=== PATIENT | male | born 1960 | race African-American/Black ===

== ENCOUNTER 2021-03-04 17:25 | Inpatient (IN) | payer OTHER, MEDICAID ==
[~2021-03-04] VITALS: Ht 185.4 cm; Wt 152.4 kg
[2021-03-04] MEDS ORDERED: ATOR10TA69 PO (17:30)
[2021-03-04] MEDS ORDERED: AMLO-79 MT (17:30)
[2021-03-04] MEDS ORDERED: WARF1POW MC (17:30)
[2021-03-04] MEDS ORDERED: CARV6.2548 PO (17:30)
[2021-03-04] MEDS ORDERED: GABA-533 PO (17:30)
[2021-03-04] MEDS ORDERED: ISOS10TA53 PO (17:30)
[2021-03-04 18:18] LABS: BASOPHILS % 0.8 % (0.0-2.0); HEMATOCRIT. 43.1 % (42.0-52.0); HEMOGLOBIN. 14.2 g/dL (14.0-18.0); LYMPHOCYTES % 31.5 % (20.0-50.0); MEAN CORPUSCULAR HEMOGLOBIN 28.4 pg (28.0-32.0); MEAN CORPUSCULAR VOLUME 86.2 fL (80.0-94.0); MEAN PLATELET VOLUME 8.2 fl (7.4-10.4); MONOCYTES % 7.6 % (2.0-8.0); NEUTROPHILS % 57.1 % (40.0-76.0); PLATELET 175 x1000/uL (130-400); RED CELL DISTRIBUTION WIDTH 14.2 % (11.6-14.6)
[2021-03-04 18:26] LABS: ETHANOL BLOOD < 10 mg/dL
[2021-03-04 18:33] LABS: INR 1.4; PROTHROMBIN TIME 14.5 sec (9.6-11.0)
[2021-03-04 18:51] LABS: CHLORIDE 106 mEq/L (98-107)
[2021-03-04 21:51] LABS: CLARITY URINE CLEAR (CLEAR); COLOR URINE YELLOW (YELLOW); KETONES URINE NEGATIVE (NEGATIVE); LEUKOCYTE ESTERASE URINE NEGATIVE (NEGATIVE); NITRITE URINE NEGATIVE (NEGATIVE); OCCULT BLOOD URINE NEGATIVE (NEGATIVE); PROTEIN URINE TRACE (NEGATIVE); SPECIFIC GRAVITY URINE 1.032 (1.005-1.030); UROBILINOGEN URINE 0.2 E.U./dL (0.2-1.0)
[2021-03-04 22:19] LABS: *COCAINE SCREEN URINE NEGATIVE (NEGATIVE)
[2021-03-04 22:20] LABS: *AMPHETAMINES SCREEN URINE NEGATIVE (NEGATIVE); *BARBITURATES SCREEN URINE NEGATIVE (NEGATIVE); *BENZODIAZEPINES SCREEN URINE NEGATIVE (NEGATIVE); CANNABINOID URINE SCREEN NEGATIVE (NEGATIVE); METHADONE URINE SCREEN NEGATIVE (NEGATIVE); OPIATES URINE SCREEN NEGATIVE (NEGATIVE); PHENCYCLIDINE URINE SCREEN NEGATIVE (NEGATIVE)
[2021-03-04 23:40] VITALS: BP 118/100
[2021-03-04 23:45] VITALS: BP 118/100
[2021-03-05] MEDS ORDERED: ACETAMINOPHEN 325MG TABLET PO PRN
[2021-03-05] MEDS ORDERED: DEXTROSE 50% WATER 50ML SYRINGE IV PRN (01:00)
[2021-03-05] MEDS: WARFARIN SODIUM 5MG TABLET PO SCH ×2 (01:34→17:47)
[2021-03-05] MEDS: WARFARIN SODIUM 4MG TABLET PO SCH ×2 (01:35→17:47)
[2021-03-05] MEDS ORDERED: ISOS30TA91 MT (02:47)
[2021-03-05] MEDS ORDERED: WARF-53 MT (02:51)
[2021-03-05] MEDS ORDERED: WARF4TAB71 MT (02:51)
[2021-03-05] MEDS ORDERED: METF-414 MT (02:53)
[2021-03-05 04:00] VITALS: BP 117/80
[2021-03-05 06:15] LABS: EOSINOPHILS % 3.4 % (0.0-5.0); HEMOGLOBIN. 13.6 g/dL (14.0-18.0); LYMPHOCYTES % 32.3 % (20.0-50.0); MEAN CORPUSCULAR HEMOGLOBIN 27.2 pg (28.0-32.0); MEAN CORPUSCULAR VOLUME 83.7 fL (80.0-94.0); MEAN PLATELET VOLUME 8.3 fl (7.4-10.4); MONOCYTES % 7.7 % (2.0-8.0); NEUTROPHILS % 55.6 % (40.0-76.0); PLATELET 199 x1000/uL (130-400); RED BLOOD CELL COUNT 5.01 mill/uL (4.7-6.1)
[2021-03-05] MEDS: BLOOD SUGAR DIAGNOSTIC STRIP TEST SCH ×4 (06:18→21:00)
[2021-03-05 06:24] LABS: CHLORIDE 107 mEq/L (98-107)
[2021-03-05 06:31] LABS: LDL CHOLESTEROL 109 mg/dL (5-100)
[2021-03-05] MEDS: INSULIN LISPRO 100 UNITS/ML SUBCUT SCH ×4 (06:32→22:06)
[2021-03-05 06:33] LABS: HDL CHOLESTEROL 47 mg/dL (40-59)
[2021-03-05 08:00] VITALS: BP 158/110
[2021-03-05] MEDS: CARVEDILOL 12.5MG TABLET PO SCH ×2 (08:38→22:07)
[2021-03-05 12:00] VITALS: BP 123/63
[2021-03-05 16:00] VITALS: BP 140/106
[2021-03-05] MEDS: ENOXAPARIN 150MG/ML SYR SUBCUT SCH (17:47)
[2021-03-05 20:27] VITALS: BP 174/113
[2021-03-05] MEDS ORDERED: ATORVASTATIN CALCIUM 40MG TABLET PO SCH (21:00)
[2021-03-06 00:34] VITALS: BP 155/82
[2021-03-06 04:00] VITALS: BP 167/102
[2021-03-06] MEDS: ENOXAPARIN 150MG/ML SYR SUBCUT SCH ×2 (05:26→17:26)
[2021-03-06 05:54] LABS: INR 1.4; PROTHROMBIN TIME 14.4 sec (9.6-11.0)
[2021-03-06] MEDS: BLOOD SUGAR DIAGNOSTIC STRIP TEST SCH ×4 (06:23→21:01)
[2021-03-06] MEDS: INSULIN LISPRO 100 UNITS/ML SUBCUT SCH ×4 (07:15→21:00)
[2021-03-06 08:00] VITALS: BP 139/94
[2021-03-06] MEDS: CARVEDILOL 12.5MG TABLET PO SCH ×2 (10:18→20:56)
[2021-03-06 12:00] VITALS: BP 149/93
[2021-03-06] MEDS: ISOSORBIDE MONONITRATE 30MG TABLET SR 24HR PO SCH (12:44)
[2021-03-06] MEDS: ASPIRIN 81MG TABLET PO SCH (12:44)
[2021-03-06 16:00] VITALS: BP 141/103
[2021-03-06] MEDS: WARFARIN SODIUM 5MG TABLET PO SCH (18:00)
[2021-03-06] MEDS: WARFARIN SODIUM 4MG TABLET PO SCH (18:00)
[2021-03-06 20:00] VITALS: BP 132/87
[2021-03-06] MEDS: ATORVASTATIN CALCIUM 40MG TABLET PO SCH (20:56)
[2021-03-06] MEDS: INSULIN GLARGINE UD 100 UNITS/ML SYR SUBCUT SCH (21:02)
[2021-03-07] VITALS: BP 144/90
[2021-03-07 04:00] VITALS: BP 146/89
[2021-03-07] MEDS: ENOXAPARIN 150MG/ML SYR SUBCUT SCH ×2 (06:23→18:06)
[2021-03-07] MEDS: BLOOD SUGAR DIAGNOSTIC STRIP TEST SCH ×4 (06:23→20:23)
[2021-03-07] MEDS: INSULIN LISPRO 100 UNITS/ML SUBCUT SCH ×4 (06:25→20:22)
[2021-03-07 08:00] VITALS: BP 123/87
[2021-03-07 08:47] LABS: BASOPHILS % 0.9 % (0.0-2.0); EOSINOPHILS % 3.6 % (0.0-5.0); HEMATOCRIT. 38.6 % (42.0-52.0); HEMOGLOBIN. 12.8 g/dL (14.0-18.0); LYMPHOCYTES % 30.5 % (20.0-50.0); MEAN CORPUSCULAR HEMOGLOBIN 27.6 pg (28.0-32.0); MEAN CORPUSCULAR VOLUME 82.9 fL (80.0-94.0); MEAN PLATELET VOLUME 8.4 fl (7.4-10.4); MONOCYTES % 7.6 % (2.0-8.0); NEUTROPHILS % 57.4 % (40.0-76.0); PLATELET 213 x1000/uL (130-400); RED BLOOD CELL COUNT 4.66 mill/uL (4.7-6.1); RED CELL DISTRIBUTION WIDTH 13.9 % (11.6-14.6)
[2021-03-07 08:54] LABS: CHLORIDE 107 mEq/L (98-107)
[2021-03-07] MEDS: ASPIRIN 81MG TABLET PO SCH (08:55)
[2021-03-07] MEDS: ISOSORBIDE MONONITRATE 30MG TABLET SR 24HR PO SCH (08:55)
[2021-03-07] MEDS: CARVEDILOL 12.5MG TABLET PO SCH ×2 (08:55→20:23)
[2021-03-07 08:58] LABS: INR 1.4; PROTHROMBIN TIME 14.6 sec (9.6-11.0)
[2021-03-07 12:00] VITALS: BP 153/85
[2021-03-07] MEDS: WARFARIN SODIUM 5MG TABLET PO SCH (18:05)
[2021-03-07] MEDS: WARFARIN SODIUM 4MG TABLET PO SCH (18:05)
[2021-03-07 20:00] VITALS: BP 134/83
[2021-03-07] MEDS: ATORVASTATIN CALCIUM 40MG TABLET PO SCH (20:23)
[2021-03-07] MEDS: INSULIN GLARGINE UD 100 UNITS/ML SYR SUBCUT SCH (21:35)
[2021-03-08] VITALS: BP 156/109
[2021-03-08 04:00] VITALS: BP 136/89
[2021-03-08] MEDS: ENOXAPARIN 150MG/ML SYR SUBCUT SCH ×2 (06:06→17:45)
[2021-03-08] MEDS: BLOOD SUGAR DIAGNOSTIC STRIP TEST SCH ×4 (06:06→21:45)
[2021-03-08 07:04] LABS: INR 1.3
[2021-03-08 08:00] VITALS: BP 134/78
[2021-03-08] MEDS: INSULIN LISPRO 100 UNITS/ML SUBCUT SCH ×4 (08:10→21:47)
[2021-03-08] MEDS: ASPIRIN 81MG TABLET PO SCH (09:00)
[2021-03-08] MEDS: ISOSORBIDE MONONITRATE 30MG TABLET SR 24HR PO SCH (09:01)
[2021-03-08] MEDS: CARVEDILOL 12.5MG TABLET PO SCH ×2 (09:01→21:46)
[2021-03-08 12:00] VITALS: BP 116/76
[2021-03-08 16:00] VITALS: BP 104/46
[2021-03-08] MEDS ORDERED: WARFARIN SODIUM 10MG TABLET PO NR (18:00)
[2021-03-08 20:00] VITALS: BP 148/105
[2021-03-08] MEDS: ATORVASTATIN CALCIUM 40MG TABLET PO SCH (21:46)
[2021-03-08] MEDS: INSULIN GLARGINE UD 100 UNITS/ML SYR SUBCUT SCH (21:50)
[2021-03-09] VITALS (10 sets, daily range): BP systolic 128–161; BP diastolic 67–101
[2021-03-09 06:48] LABS: INR 1.3; PROTHROMBIN TIME 14.1 sec (9.6-11.0)
[2021-03-09] MEDS: BLOOD SUGAR DIAGNOSTIC STRIP TEST SCH ×5 (06:54→20:36)
[2021-03-09] MEDS: ENOXAPARIN 150MG/ML SYR SUBCUT SCH ×2 (07:14→17:37)
[2021-03-09] MEDS: INSULIN LISPRO 100 UNITS/ML SUBCUT SCH ×5 (07:16→20:36)
[2021-03-09] MEDS: ASPIRIN 81MG TABLET PO SCH (09:00)
[2021-03-09] MEDS: ISOSORBIDE MONONITRATE 30MG TABLET SR 24HR PO SCH (09:00)
[2021-03-09] MEDS: CARVEDILOL 12.5MG TABLET PO SCH (09:00)
[2021-03-09] MEDS ORDERED: SODIUM CHLORIDE 0.9% 500 ML IV ONE (15:15)
[2021-03-09] MEDS ORDERED: DOPAMINE 400MG/250ML PREMIX 250 ML IV PRN (17:08)
[2021-03-09] MEDS ORDERED: WARFARIN SODIUM 10MG TABLET PO SCH (18:00)
[2021-03-09] MEDS: ATORVASTATIN CALCIUM 40MG TABLET PO SCH (20:28)
[2021-03-09] MEDS ORDERED: DEXTROSE 50% WATER 50ML SYRINGE IV PRN (21:00)
[2021-03-10] VITALS (53 sets, daily range): BP systolic 102–170; BP diastolic 55–143
[2021-03-10] MEDS: BLOOD SUGAR DIAGNOSTIC STRIP TEST SCH ×6 (00:04→20:00)
[2021-03-10] MEDS: INSULIN LISPRO 100 UNITS/ML SUBCUT SCH ×7 (04:00→23:43)
[2021-03-10 05:23] LABS: BASOPHILS % 0.6 % (0.0-2.0); EOSINOPHILS % 3.5 % (0.0-5.0); HEMATOCRIT. 39.5 % (42.0-52.0); LYMPHOCYTES % 33.7 % (20.0-50.0); MEAN CORPUSCULAR HEMOGLOBIN 27.3 pg (28.0-32.0); MEAN PLATELET VOLUME 8.4 fl (7.4-10.4); MONOCYTES % 11.2 % (2.0-8.0); PLATELET 206 x1000/uL (130-400); RED BLOOD CELL COUNT 4.75 mill/uL (4.7-6.1); RED CELL DISTRIBUTION WIDTH 14.2 % (11.6-14.6)
[2021-03-10 05:28] LABS: CHLORIDE 107 mEq/L (98-107)
[2021-03-10 05:58] LABS: INR 1.5; PROTHROMBIN TIME 15.7 sec (9.6-11.0)
[2021-03-10] MEDS: ISOSORBIDE MONONITRATE 30MG TABLET SR 24HR PO SCH (09:00)
[2021-03-10] MEDS: HYDRALAZINE 20MG/ML VIAL IV PRN ×2 (09:04→22:30)
[2021-03-10] MEDS ORDERED: ONDANSETRON HCL 4MG/2ML INJ ONE (10:30)
[2021-03-10] MEDS ORDERED: PROPOFOL 200MG/20ML VIAL IV ONE (10:30)
[2021-03-10] MEDS ORDERED: FENTANYL CITRATE/PF 50MCG/ML 2ML VIAL ONE (10:30)
[2021-03-10] MEDS ORDERED: CEFAZOLIN SODIUM 1000MG/VIAL ONE (10:30)
[2021-03-10] MEDS ORDERED: MIDAZOLAM HCL 5 MG/5 ML VIAL ONE ×2 (10:30→12:43)
[2021-03-10] MEDS ORDERED: LIDOCAINE HCL/PF 1% 10 MG/ML 5ML VIAL ONE (10:30)
[2021-03-10] MEDS ORDERED: IODIXANOL 320MG/ML 100 ML BOTTLE IV ONE (10:32)
[2021-03-10] MEDS ORDERED: LIDOCAINE HCL 1% 20ML VIAL (Pyxis) INJ ONE (10:32)
[2021-03-10] MEDS ORDERED: GENTAMICIN SULF 40MG/ML 2ML VIAL ONE (10:49)
[2021-03-10] MEDS ORDERED: GENTAMICIN/NS IRRIGATION 500 ML IR ONE (10:50)
[2021-03-10] MEDS ORDERED: HYDROCODONE/ACETAMINOPHEN 5/325MG TABLET PO PRN (12:30)
[2021-03-10] MEDS ORDERED: FENTANYL CITRATE/PF 50MCG/ML 5ML VIAL ONE (12:43)
[2021-03-10] MEDS ORDERED: WARFARIN SODIUM 10MG TABLET PO SCH (18:00)
[2021-03-10] MEDS: CEFAZOLIN 1000MG PREMIX 50 ML IV SCH (19:55)
[2021-03-10] MEDS: ATORVASTATIN CALCIUM 40MG TABLET PO SCH (21:34)
[2021-03-10] MEDS: INSULIN GLARGINE UD 100 UNITS/ML SYR SUBCUT SCH (21:35)
[2021-03-11] VITALS (59 sets, daily range): BP systolic 73–164; BP diastolic 40–114
[2021-03-11] MEDS: CEFAZOLIN 1000MG PREMIX 50 ML IV SCH (03:50)
[2021-03-11] MEDS: INSULIN LISPRO 100 UNITS/ML SUBCUT SCH ×5 (03:51→20:31)
[2021-03-11] MEDS: BLOOD SUGAR DIAGNOSTIC STRIP TEST SCH ×6 (04:00→20:21)
[2021-03-11 05:27] LABS: BASOPHILS % 0.5 % (0.0-2.0); EOSINOPHILS % 3.2 % (0.0-5.0); HEMATOCRIT. 40.8 % (42.0-52.0); HEMOGLOBIN. 13.2 g/dL (14.0-18.0); LYMPHOCYTES % 29.1 % (20.0-50.0); MEAN CORPUSCULAR HEMOGLOBIN 26.9 pg (28.0-32.0); MEAN CORPUSCULAR VOLUME 83.2 fL (80.0-94.0); MEAN PLATELET VOLUME 8.2 fl (7.4-10.4); MONOCYTES % 8.9 % (2.0-8.0); NEUTROPHILS % 58.3 % (40.0-76.0); PLATELET 221 x1000/uL (130-400); RED CELL DISTRIBUTION WIDTH 14.2 % (11.6-14.6)
[2021-03-11 05:38] LABS: CHLORIDE 108 mEq/L (98-107)
[2021-03-11 06:05] LABS: INR 1.5; PROTHROMBIN TIME 15.8 sec (9.6-11.0)
[2021-03-11] MEDS: ISOSORBIDE MONONITRATE 30MG TABLET SR 24HR PO SCH (08:24)
[2021-03-11] MEDS: ASPIRIN 81MG TABLET PO SCH (09:00)
[2021-03-11] MEDS: METOPROLOL TARTRATE 50MG TABLET PO SCH ×2 (09:43→21:22)
[2021-03-11] MEDS ORDERED: WARFARIN SODIUM 10MG TABLET PO SCH (18:00)
[2021-03-11] MEDS: ATORVASTATIN CALCIUM 40MG TABLET PO SCH (21:23)
[2021-03-11] MEDS: INSULIN GLARGINE UD 100 UNITS/ML SYR SUBCUT SCH (21:49)
[2021-03-12] VITALS: BP 141/88
[2021-03-12] MEDS: BLOOD SUGAR DIAGNOSTIC STRIP TEST SCH ×2 (00:10→04:14)
[2021-03-12] MEDS: INSULIN LISPRO 100 UNITS/ML SUBCUT SCH ×3 (00:19→08:00)
[2021-03-12 04:00] VITALS: BP 146/84
[2021-03-12 06:36] LABS: CHLORIDE 108 mEq/L (98-107)
[2021-03-12 06:48] LABS: BASOPHILS % 0.6 % (0.0-2.0); EOSINOPHILS % 3.6 % (0.0-5.0); HEMATOCRIT. 38.7 % (42.0-52.0); LYMPHOCYTES % 26.5 % (20.0-50.0); MEAN CORPUSCULAR HEMOGLOBIN 28.1 pg (28.0-32.0); MEAN CORPUSCULAR VOLUME 83.7 fL (80.0-94.0); MEAN PLATELET VOLUME 8.5 fl (7.4-10.4); MONOCYTES % 8.9 % (2.0-8.0); NEUTROPHILS % 60.4 % (40.0-76.0); PLATELET 190 x1000/uL (130-400); RED BLOOD CELL COUNT 4.63 mill/uL (4.7-6.1); RED CELL DISTRIBUTION WIDTH 14.1 % (11.6-14.6)
[2021-03-12 06:58] LABS: INR 1.6; PROTHROMBIN TIME 16.2 sec (9.6-11.0)
[2021-03-12 08:00] VITALS: BP 111/84
[2021-03-12] MEDS: METOPROLOL TARTRATE 50MG TABLET PO SCH (09:43)
[2021-03-12] MEDS: ISOSORBIDE MONONITRATE 30MG TABLET SR 24HR PO SCH (09:44)
[2021-03-12] MEDS: ASPIRIN 81MG TABLET PO SCH (09:45)
[2021-03-12 12:00] VITALS: BP 139/95
[2021-03-12 13:46] VITALS: BP 139/95
[2021-03-12] MEDS ORDERED: WARFARIN SODIUM 10MG TABLET PO SCH (18:00)
[2021-03-16] MEDS ORDERED: PROT40 MT (15:53)
[2021-03-16] MEDS ORDERED: ASPI-1497 MT (15:53)
[2021-03-16] MEDS ORDERED: LOV40 SQ ×2 (15:53)
== END 2021-03-12 14:20 | disposition home or self-care (01) | DRG 242 ==
LOC: ER 17:51 → 5WST 21:40 → ENRESERV 22:12 → 5WST 03-06 19:47 → CVICU 03-09 16:43 → 6WST 03-11 17:39
PROVIDERS: ADMIT Internal Medicine; ATTEND Internal Medicine
PROC: 4A10X4Z Monitoring of Central Nervous Electrical Activity, External Approach (ICD-10-PCS; 2021-03-08)
PROC: B5171ZZ Fluoroscopy of Left Subclavian Vein using Low Osmolar Contrast (ICD-10-PCS; principal; 2021-03-10)
PROC: 0JH606Z Insertion of Pacemaker, Dual Chamber into Chest Subcutaneous Tissue and Fascia, Open Approach (ICD-10-PCS; 2021-03-10)
PROC: 02H63JZ Insertion of Pacemaker Lead into Right Atrium, Percutaneous Approach (ICD-10-PCS; 2021-03-10)
PROC: 02HK3JZ Insertion of Pacemaker Lead into Right Ventricle, Percutaneous Approach (ICD-10-PCS; 2021-03-10)
DX: I44.2 Atrioventricular block, complete (principal); I63.9 Cerebral infarction, unspecified; Z68.41 Body mass index [BMI] 40.0-44.9, adult; E44.1 Mild protein-calorie malnutrition; R29.810 Facial weakness; E78.5 Hyperlipidemia, unspecified; E11.42 Type 2 diabetes mellitus with diabetic polyneuropathy; R79.1 Abnormal coagulation profile; I10 Essential (primary) hypertension; E66.01 Morbid (severe) obesity due to excess calories; E78.00 Pure hypercholesterolemia, unspecified; Z79.01 Long term (current) use of anticoagulants; Z86.73 Personal history of transient ischemic attack (TIA), and cerebral infarction without residual deficits; Z95.2 Presence of prosthetic heart valve; Z79.4 Long term (current) use of insulin; Z95.0 Presence of cardiac pacemaker; Z79.899 Other long term (current) drug therapy
CPT/HCPCS: 33208; 36415; 71045; 75820; 80048; 80053; 80061; 80305; 80320; 81003; 82962; 83036; 83735; 84443; 84484; 85025; 93005; 93306; 93880; 95816; 97116; 97162; 97166; 97530; 97535; 99285; A4565; C1785; C1893; C1898; J0360; J0690; J1580; J1650; J1815; J2250; J2405; J2704; J3010; J3490; J7040; Q9967; G0480